=== PATIENT | male | born 1970 | race African-American/Black ===

== ENCOUNTER 2016-09-02 08:44 | Emergency (ER) | payer SELFPAY ==
[~2016-09-02] VITALS: Ht 177.8 cm; Wt 90.7 kg
--- NOTE | 2016-09-02 09:11 | PHYS DOC ---
Past Medical History Past Medical History: Asthma Past Surgical History: Other Additional Past Surgical Histo: L hand fx Alcohol Use: Occasionally Drug Use: Marijuana Adult General Chief Complaint Chief Complaint: SHORTNESS OF BREATH HPI HPI Patient is a 46 year old male who presents with multiple complaints. Patient reports for the past 2 days he has been having productive cough, SOB, chest aching, fever, vomiting. No clear inciting or mitigating factors. Has tried theraflu, herbie seltzer, ibuprofen at home with insufficient relief. Did not measure temperature at home. Did not get a flu shot this year. Review of Systems Review of Systems Constitutional: Fever Eyes: Denies change in visual acuity or eye pain HENT: Denies nasal congestion or sore throat Respiratory: Cough, shortness of breath Cardiovascular: General chest aching GI: Vomiting. Denies abdominal pain, bloody stools or diarrhea : Denies dysuria or hematuria Musculoskeletal: Myalgias Integument: Denies rash or skin lesions Neurologic: Denies headache, focal weakness or sensory changes Current Medications Current Medications Current Medications Medications (Trade) Dose Ordered Sig/Leigh Ann Start Time Stop Time Status Last Admin Dose Admin Acetaminophen (Tylenol) 1,000 mg 1X ONCE 09/02/16 09:30 09/02/16 09:31 DC 09/02/16 09:57 1,000 MG Aspirin (Children'S Aspirin) 324 mg 1X ONCE 09/02/16 09:30 09/02/16 09:31 DC 09/02/16 09:56 324 MG Oseltamivir Phosphate (Tamiflu) 75 mg 1X ONCE 09/02/16 10:00 09/02/16 10:01 DC 09/02/16 09:56 75 MG Sodium Chloride (Iv Sodium Chloride 0.9% 1000ml Bag) 1,000 ml @ 1,000 mls/hr Q1H 09/02/16 09:30 09/02/16 10:29 DC 09/02/16 09:57 1,000 MLS/HR Allergies Allergies Allergies Coded Allergies Type Severity Reaction Last Updated Verified No Known Drug Allergies 05/02/14 No Physical Exam Physical Exam Constitutional: Well developed, well nourished, non-toxic appearance HENT: Normocephalic, atraumatic, bilateral external ears normal Eyes: EOMI, conjunctiva normal, no discharge Neck: Normal range of motion, no stridor Cardiovascular: Tachycardic, regular rhythm, no murmur Lungs & Thorax: Coarse breath sounds throughout Abdomen: Bowel sounds normal, soft, non-distended, no TTP Skin: Hot to touch, dry, no erythema, no rash Extremities: No obvious deformity, no edema Neurologic: Alert and oriented X 3, no gross deficits noted Current Patient Data Vital Signs Vital Signs Date Time Temp Pulse Resp B/P Pulse Ox O2 Delivery O2 Flow Rate FiO2 09/02/16 10:55 94 18 110/65 95 Room Air 09/02/16 08:50 101.6 101.6 Lab Values Laboratory Tests Test 09/02/16 08:54 09/02/16 09:20 09/02/16 10:05 Influenza Type A Antigen Positive (NEGATIVE) Influenza Type B Antigen Negative (NEGATIVE) White Blood Count 5.2x10^3/uL (4.0-11.0) Red Blood Count 4.15x10^6/uL (4.30-5.70) L Hemoglobin 13.1g/dL (13.0-17.5) Hematocrit 38.9% (39.0-53.0) L Mean Corpuscular Volume 94fL (79-100) Mean Corpuscular Hemoglobin 32pg (25-35) Mean Corpuscular Hemoglobin Concent 34g/dL (31-37) Red Cell Distribution Width 13.6% (11.5-14.5) Platelet Count 190x10^3/uL (140-400) Neutrophils (%) (Auto) 71% (31-73) Lymphocytes (%) (Auto) 14% (24-48) L Monocytes (%) (Auto) 14% (0-9) H Eosinophils (%) (Auto) 0% (0-3) Basophils (%) (Auto) 1% (0-3) Neutrophils # (Auto) 3.7x10^3uL (1.8-7.7) Lymphocytes # (Auto) 0.8x10^3/uL (1.0-4.8) L Monocytes # (Auto) 0.7x10^3/uL (0.0-1.1) Eosinophils # (Auto) 0.0x10^3/uL (0.0-0.7) Basophils # (Auto) 0.0x10^3/uL (0.0-0.2) Lactic Acid Level 1.3mmol/L (0.4-2.0) Sodium Level 134mmol/L (136-145) L Potassium Level 3.8mmol/L (3.5-5.1) Chloride Level 97mmol/L (98-107) L Carbon Dioxide Level 27mmol/L (21-32) Anion Gap 10 (6-14) Blood Urea Nitrogen 18mg/dL (8-26) Creatinine 1.6mg/dL (0.7-1.3) H Estimated GFR (Cockcroft-Gault) 56.3 Glucose Level 125mg/dL (70-99) H Calcium Level 8.8mg/dL (8.5-10.1) Troponin I Quantitative < 0.017ng/mL (0.000-0.055) Laboratory Tests 09/02/16 09:20 Laboratory Tests 09/02/16 10:05 EKG EKG EKG (my read): sinus rhythm, rate 108, normal axis, no acute ischemic changes Radiology/Procedures Radiology/Procedures CXR: Impression: No acute radiographic abnormality is seen. Course & Med Decision Making Course & Med Decision Making Pertinent Labs and Imaging studies reviewed. (See chart for details) Patient is 46-year-old male presents with cough, fever, vomiting. Suspect viral illness. Chest x-ray, EKG, labs ordered to evaluate. IV fluids, aspirin, Tylenol ordered for relief of symptoms. Labs largely unremarkable. Creatinine 1.6, however this is relatively close to prior values. Influenza a positive. Dose of Tamiflu ordered. Discussed results with patient. Patient says he is feeling better at this time. Patient discharged home with prescription for cough syrup, Tamiflu, instructions for follow-up and return precautions. Dragon Disclaimer Dragon Disclaimer This electronic medical record was generated, in whole or in part, using a voice recognition dictation system. Departure Departure Impression: Primary Impression: Influenza A Disposition: 01 HOME, SELF-CARE Condition: STABLE Referrals: NO PCP (PCP) Patient Instructions: Influenza A (H1N1) Additional Instructions: Thank you for allowing us to provide care today in the Emergency Department. Take the provided medication as directed. Use caution after taking the cough syrup as it can make you drowsy. Schedule a follow up appointment with your primary care doctor. Return promptly to the Emergency Department if you develop any new or concerning symptoms. Scripts Oseltamivir Phosphate (Tamiflu)75 Mg Capsule1 Cap PO BID #10 CAP Prov:DANNY MENA MD 09/02/16 Hydrocodone/Chlorphen Polis (Tussionex Pennkinetic Susp)480 Ml Yuliet.[id number] Ml PO BID PRN COUGH #100 ML Prov:DANNY MENA MD 09/02/16 DANNY MENA MD Sep 02, 2016 09:11
[2016-09-02] MEDS ORDERED: IV NORMAL SALINE 1000ML BAG 1,000 ML IV SCH (09:30)
[2016-09-02] MEDS ORDERED: ACETAMINOPHEN 500 MG TABLET PO ONE (09:30)
[2016-09-02] MEDS ORDERED: ASPIRIN 81 MG TAB.CHEW PO ONE (09:30)
[2016-09-02 09:34] LABS: BASO % 1 % (0-3); EOS % 0 % (0-3); HEMATOCRIT 38.9 % (39.0-53.0); HEMOGLOBIN 13.1 g/dL (13.0-17.5); LYMPH # 0.8 x10^3/uL (1.0-4.8); LYMPH % 14 % (24-48); MEAN CORPUSCULAR HEMOGLOBIN 32 pg (25-35); MEAN CORPUSCULAR HGB CONC 34 g/dL (31-37); MEAN CORPUSCULAR VOLUME 94 fL (79-100); MONO % 14 % (0-9); NEUT % 71 % (31-73); PLATELET COUNT 190 x10^3/uL (140-400); RED BLOOD COUNT 4.15 x10^6/uL (4.30-5.70); RED CELL DISTRIBUTION WIDTH 13.6 % (11.5-14.5); WHITE BLOOD COUNT 5.2 x10^3/uL (4.0-11.0)
[2016-09-02 09:36] LABS: OBC FLU VALID
--- NOTE | 2016-09-02 09:40 | RAD ---
2 view CXR: Clinical indications: Shortness of breath. Weakness. Abdominal pain. Findings: No acute lung infiltrate or pleural effusion or pulmonary edema or lung mass or pneumothorax is seen. The heart size, pulmonary vasculature, mediastinum and both franklin are unremarkable. The osseous structures appear intact. Impression: No acute radiographic abnormality is seen.
[2016-09-02] MEDS ORDERED: OSELTAMIVIR 75 MG CAPSULE PO ONE (10:00)
--- NOTE | 2016-09-02 10:04 | EKG ---
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
[2016-09-02 10:36] LABS: CALCIUM 8.8 mg/dL (8.5-10.1); CREATININE 1.6 mg/dL (0.7-1.3); GFR 56.3; POTASSIUM 3.8 mmol/L (3.5-5.1)
[2016-09-02 10:55] VITALS: BP 110/65
[2016-09-02] MEDS ORDERED: HYDR115S2 PO (11:30)
[2016-09-02] MEDS ORDERED: OSEL75CA PO (11:30)
== END 2016-09-02 11:40 | disposition home or self-care (01) ==
LOC: ER 08:44
DX: J09.X2 Influenza due to identified novel influenza A virus with other respiratory manifestations (principal); J45.909 Unspecified asthma, uncomplicated; F12.10 Cannabis abuse, uncomplicated
CPT/HCPCS: 36415; 71020; 80048; 83605; 84484; 85027; 87040; 87804; 93005; 96360; 96361; 99285; J7030

== ENCOUNTER 2016-10-26 21:03 | Emergency (ER) | payer SELFPAY ==
[~2016-10-26] VITALS: Ht 177.8 cm; Wt 97.5 kg
[~2016-10-26 21:03] MED LIST: HYDR115S2 PO; OSEL75CA PO
[2016-10-26] MEDS ORDERED: IV NORMAL SALINE 1000ML BAG 1,000 ML IV SCH (22:15)
[2016-10-26] MEDS ORDERED: MORPHINE SULFATE 4 MG/ML DISP.SYRIN. IV ONE (22:15)
[2016-10-26 22:22] VITALS: BP 145/88
[2016-10-26 22:31] LABS: BASO % 1 % (0-3); EOS % 4 % (0-3); HEMATOCRIT 37.5 % (39.0-53.0); HEMOGLOBIN 12.6 g/dL (13.0-17.5); LYMPH # 1.3 x10^3/uL (1.0-4.8); LYMPH % 41 % (24-48); MEAN CORPUSCULAR HEMOGLOBIN 33 pg (25-35); MEAN CORPUSCULAR HGB CONC 34 g/dL (31-37); MEAN CORPUSCULAR VOLUME 96 fL (79-100); MONO % 11 % (0-9); NEUT % 42 % (31-73); PLATELET COUNT 217 x10^3/uL (140-400); RED BLOOD COUNT 3.89 x10^6/uL (4.30-5.70); WHITE BLOOD COUNT 3.1 x10^3/uL (4.0-11.0)
[2016-10-26 22:32] LABS: BILIRUBIN,URINE NEGATIVE (NEG); GLUCOSE,URINE NEGATIVE (NEG); NITRITE,URINE NEGATIVE (NEG); PROTEIN,URINE NEGATIVE (NEG-TRACE)
[2016-10-26 22:38] LABS: BACTERIA,URINE 0 /HPF (0-FEW); SQUAMOUS EPITHELIAL CELL,UR OCC /LPF; WBC,URINE OCC /HPF (0-4)
[2016-10-26 22:41] LABS: CREATININE 1.4 mg/dL (0.7-1.3); GFR 65.7; POTASSIUM 3.8 mmol/L (3.5-5.1)
[2016-10-26 22:46] LABS: ALBUMIN 3.5 g/dL (3.4-5.0); TOTAL BILIRUBIN 0.2 mg/dL (0.2-1.0); TOTAL PROTEIN 6.9 g/dL (6.4-8.2)
--- NOTE | 2016-10-26 23:06 | RAD ---
PROCEDURE CT scan of the abdomen and pelvis without contrast 10/26/2016 HISTORY Severe right flank pain for 1 week. TECHNIQUE Unenhanced contiguous, 2 millimeter axial sections were obtained through the abdomen and pelvis. One or more of the following individualized dose reduction techniques were utilized for this study: 1. Automated exposure control. 2. Adjustment of the mA and/or kV according to patient size. 3. Use of iterative reconstruction technique. FINDINGS The images through the upper abdomen are degraded by patient motion. Images through the lung bases are within normal limits. The liver, spleen, adrenal glands are within normal limits. Punctate calcifications are seen in the region of the head of the pancreas which may reflect chronic pancreatitis. No acute abnormality of the pancreas is seen. No renal or ureteral calculus is seen. There is no evidence of significant obstruction of either collecting system. The abdominal aorta tapers normally. Mild scattered atherosclerotic plaque formation is seen. The gallbladder is contracted. No free fluid or free air is within the abdomen. There is no evidence of bowel obstruction. The appendix is partially visualized and is within normal limits. Images through the pelvis demonstrate the urinary bladder distended with urine. No distal ureteral calculus is seen. Calcifications are seen within the pelvis consistent with phleboliths. Minimal S-shaped curvature of the thoracolumbar spine is noted. IMPRESSION No acute abnormality is seen. Electronically signed by: Eren Murdock MD (Oct 26, 2016 23:05:25)
[2016-10-26] MEDS ORDERED: CYCL10TA2 PO (23:28)
[2016-10-26] MEDS ORDERED: NAPR375T3 PO (23:28)
--- NOTE | 2016-10-26 23:28 | PHYS DOC ---
Past Medical History Past Medical History: Asthma Past Surgical History: Other Additional Past Surgical Histo: hardware left hand Alcohol Use: None Drug Use: None Adult General Chief Complaint Chief Complaint: BACK PAIN - NO INJURY HPI HPI Patient is a 46 year old female who presents with right flank pain. Patient reports for the past 2 weeks she has been having sharp pain in his right flank. This pain is worse with certain movements. He has tried Tylenol with insufficient relief. No urinary symptoms. No abdominal pain. In addition, patient reports that both his hands and wrists have been numb and painful for some time. No clear inciting event for this either. No other acute complaints. Review of Systems Review of Systems Constitutional: Denies fever or chills Respiratory: Denies cough or shortness of breath Cardiovascular: Denies chest pain GI: Denies abdominal pain, nausea, vomiting, bloody stools or diarrhea : Denies dysuria or hematuria Musculoskeletal: R flank pain, b/l hand/wrist pain and numbness Integument: Denies rash or skin lesions Neurologic: Denies headache, focal weakness Current Medications Current Medications Current Medications Medications (Trade) Dose Ordered Sig/Leigh Ann Start Time Stop Time Status Last Admin Dose Admin Ketorolac Tromethamine (Toradol) 30 mg STK-MED ONCE 10/26/16 23:32 10/26/16 23:33 DC Morphine Sulfate 4 mg 1X ONCE 10/26/16 22:15 10/26/16 22:16 DC 10/26/16 22:27 4 MG Sodium Chloride (Iv Sodium Chloride 0.9% 1000ml Bag) 1,000 ml @ 1,000 mls/hr Q1H 10/26/16 22:15 10/26/16 23:14 DC 10/26/16 22:29 1,000 MLS/HR Allergies Allergies Allergies Coded Allergies Type Severity Reaction Last Updated Verified No Known Drug Allergies 05/02/14 No Physical Exam Physical Exam Constitutional: Well developed, well nourished, no acute distress, non-toxic appearance HENT: Normocephalic, atraumatic, bilateral external ears normal Eyes: EOMI, conjunctiva normal, no discharge Neck: Normal range of motion, no stridor Cardiovascular: Heart rate normal, regular rhythm, no murmur Lungs & Thorax: Bilateral breath sounds clear to auscultation Abdomen: Bowel sounds normal, soft, non-distended, no TTP Skin: Warm, dry, no erythema, no rash Back: R lower back TTP, no midline TTP, no stepoff/deformity/skin lesion noted Extremities: B/l hands and wrists visually and palpably unremarkable; no point TTP, no deformity or skin lesion noted; 2+ radial pulse, motor function fully intact Neurologic: Alert and oriented X 3, no gross deficits noted Current Patient Data Vital Signs Vital Signs Date Time Temp Pulse Resp B/P Pulse Ox O2 Delivery O2 Flow Rate FiO2 10/26/16 22:22 85 20 145/88 98 Room Air 10/26/16 21:09 99.5 99.5 Lab Values Laboratory Tests Test 10/26/16 21:15 10/26/16 22:20 Urine Collection Type Unknown Urine Color Yellow Urine Clarity Clear Urine pH 6.0 Urine Specific [place] 1.020 Urine Protein Negativemg/dL (NEG-TRACE) Urine Glucose (UA) Negativemg/dL (NEG) Urine Ketones (Stick) Negativemg/dL (NEG) Urine Blood Small (NEG) Urine Nitrite Negative (NEG) Urine Bilirubin Negative (NEG) Urine Urobilinogen Dipstick 1.0mg/dL (0.2 mg/dL) Urine Leukocyte Esterase Negative (NEG) Urine RBC 3-5/HPF (0-2) Urine WBC Occ/HPF (0-4) Urine Squamous Epithelial Cells Occ/LPF Urine Bacteria 0/HPF (0-FEW) Urine Mucus Slight/LPF White Blood Count 3.1x10^3/uL (4.0-11.0) L Red Blood Count 3.89x10^6/uL (4.30-5.70) L Hemoglobin 12.6g/dL (13.0-17.5) L Hematocrit 37.5% (39.0-53.0) L Mean Corpuscular Volume 96fL (79-100) Mean Corpuscular Hemoglobin 33pg (25-35) Mean Corpuscular Hemoglobin Concent 34g/dL (31-37) Red Cell Distribution Width 14.0% (11.5-14.5) Platelet Count 217x10^3/uL (140-400) Neutrophils (%) (Auto) 42% (31-73) Lymphocytes (%) (Auto) 41% (24-48) Monocytes (%) (Auto) 11% (0-9) H Eosinophils (%) (Auto) 4% (0-3) H Basophils (%) (Auto) 1% (0-3) Neutrophils # (Auto) 1.3x10^3uL (1.8-7.7) L Lymphocytes # (Auto) 1.3x10^3/uL (1.0-4.8) Monocytes # (Auto) 0.3x10^3/uL (0.0-1.1) Eosinophils # (Auto) 0.1x10^3/uL (0.0-0.7) Basophils # (Auto) 0.0x10^3/uL (0.0-0.2) Sodium Level 143mmol/L (136-145) Potassium Level 3.8mmol/L (3.5-5.1) Chloride Level 107mmol/L (98-107) Carbon Dioxide Level 29mmol/L (21-32) Anion Gap 7 (6-14) Blood Urea Nitrogen 19mg/dL (8-26) Creatinine 1.4mg/dL (0.7-1.3) H Estimated GFR (Cockcroft-Gault) 65.7 BUN/Creatinine Ratio 14 (6-20) Glucose Level 126mg/dL (70-99) H Calcium Level 9.0mg/dL (8.5-10.1) Total Bilirubin 0.2mg/dL (0.2-1.0) Aspartate Amino Transferase (AST) 25U/L (15-37) Alanine Aminotransferase (ALT) 33U/L (16-63) Alkaline Phosphatase 71U/L (46-116) Total Protein 6.9g/dL (6.4-8.2) Albumin 3.5g/dL (3.4-5.0) Albumin/Globulin Ratio 1.0 (1.0-1.7) Laboratory Tests 10/26/16 22:20 Laboratory Tests 10/26/16 22:20 EKG EKG [] Radiology/Procedures Radiology/Procedures CT A/P: IMPRESSION No acute abnormality is seen. Course & Med Decision Making Course & Med Decision Making Pertinent Labs and Imaging studies reviewed. (See chart for details) Patient is 46-year-old male who presents with right flank pain. Possible kidney stone versus muscle spasm. Will obtain CT abdomen/pelvis, labs, UA to evaluate. IV fluids, pain medication ordered for patient comfort. Labs largely unremarkable; mild leukopenia, minimal blood in urine but no evidence of UTI. Imaging results as above. Discussed results with patient, who is feeling better at this time. Hand/wrist pain likely due to tendinitis with possible carpal tunnel syndrome component. Will provide with wrist splints. Will discharge with rx for NSAID and muscle relaxant, instructions for follow up, return precautions. Dragon Disclaimer Dragon Disclaimer This electronic medical record was generated, in whole or in part, using a voice recognition dictation system. Departure Departure Impression: Primary Impression: Back pain Additional Impression: Bilateral hand pain Disposition: HOME, SELF-CARE Condition: IMPROVED Referrals: NO PCP (PCP) Patient Instructions: Back Pain, Adult, Tendinitis Additional Instructions: Thank you for allowing us to provide care today in the Emergency Department. Take the provided medication as directed. Use caution when taking the muscle relaxant as it can make you drowsy. Schedule a follow up appointment with a primary care doctor using the provided list. Return promptly to the Emergency Department if you develop any new or concerning symptoms. Scripts Cyclobenzaprine Hcl 10 Mg [id number] Mg PO TID PRN MUSCLE SPASMS #15 TAB Prov:DANNY MENA MD 10/26/16 Naproxen 375 Mg [id number] Mg PO BID PRN PAIN #30 Prov:DANNY MENA MD 10/26/16 Problem Qualifiers DANNY MENA MD Oct 26, 2016 23:28
[2016-10-26] MEDS ORDERED: KETOROLAC 15 MG/ML VIAL. IV ONE (23:30)
[2016-10-26] MEDS ORDERED: KETOROLAC TROMETHAMINE 30 MG/ML INJ. ONE (23:32)
== END 2016-10-26 23:39 | disposition home or self-care (01) ==
LOC: ER 21:03
DX: M79.641 Pain in right hand (principal); M79.642 Pain in left hand; M54.89 Other dorsalgia; R20.0 Anesthesia of skin; R10.9 Unspecified abdominal pain; J45.909 Unspecified asthma, uncomplicated; Z98.890 Other specified postprocedural states
CPT/HCPCS: 36415; 74176; 80053; 81001; 85027; 96361; 96374; 96375; 99285; J1885; J2270; J7030

== ENCOUNTER 2016-11-08 17:48 | Emergency (ER) | payer SELFPAY ==
[~2016-11-08] VITALS: Ht 179.1 cm; Wt 99.8 kg
[~2016-11-08 17:48] MED LIST changes: +CYCL10TA2 PO; +NAPR375T3 PO
[2016-11-08] MEDS ORDERED: ASPIRIN CHEWABLE 81 MG TABLET. PO ONE (18:00)
[2016-11-08 18:14] LABS: BASO % 1 % (0-3); EOS % 1 % (0-3); HEMATOCRIT 41.4 % (39.0-53.0); HEMOGLOBIN 13.8 g/dL (13.0-17.5); LYMPH # 1.4 x10^3/uL (1.0-4.8); LYMPH % 25 % (24-48); MEAN CORPUSCULAR HEMOGLOBIN 32 pg (25-35); MEAN CORPUSCULAR HGB CONC 33 g/dL (31-37); MEAN CORPUSCULAR VOLUME 96 fL (79-100); MONO % 11 % (0-9); NEUT % 63 % (31-73); PLATELET COUNT 243 x10^3/uL (140-400); RED BLOOD COUNT 4.32 x10^6/uL (4.30-5.70); RED CELL DISTRIBUTION WIDTH 13.9 % (11.5-14.5); WHITE BLOOD COUNT 5.7 x10^3/uL (4.0-11.0)
[2016-11-08 18:34] LABS: CALCIUM 10.2 mg/dL (8.5-10.1); CREATININE 1.5 mg/dL (0.7-1.3); GFR 60.7; POTASSIUM 3.9 mmol/L (3.5-5.1)
--- NOTE | 2016-11-08 18:35 | EKG ---
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
[2016-11-08 18:40] LABS: ALBUMIN 4.5 g/dL (3.4-5.0); DIRECT BILIRUBIN 0.2 mg/dL (0.0-0.2); TOTAL BILIRUBIN 0.7 mg/dL (0.2-1.0); TOTAL PROTEIN 8.3 g/dL (6.4-8.2)
[2016-11-08] MEDS ORDERED: FAMO40TA57 PO (19:17)
--- NOTE | 2016-11-08 19:18 | PHYS DOC ---
Past Medical History Past Medical History: Asthma Past Surgical History: Other Additional Past Surgical Histo: hardware left hand Alcohol Use: Occasionally Drug Use: Marijuana Adult General Chief Complaint Chief Complaint: CHEST PAIN HPI HPI 46-year-old male presenting to the emergency department today with chest pain that he describes as sharp pain which is moderate nonradiating and without alleviating factors. He has also had a little bit of epigastric burning sensation and has noticed small amounts of red blood after vomiting once today. He has a history of asthma but denies a history of hyperlipidemia hypertension diabetes. He does have a history of smoking. He denies unilateral leg swelling hemoptysis recent immobilization or personal or family history of blood clotting disorders. Review of systems is negative for fevers chills syncope headache. All other review of systems is negative unless otherwise noted in history of present illness. Review of Systems Review of Systems SEE ABOVE. Current Medications Current Medications Current Medications Medications (Trade) Dose Ordered Sig/Leigh Ann Start Time Stop Time Status Last Admin Dose Admin Aspirin (Children'S Aspirin) 324 mg 1X ONCE 11/08/16 18:00 11/08/16 18:01 DC 11/08/16 18:23 324 MG Allergies Allergies Allergies Coded Allergies Type Severity Reaction Last Updated Verified No Known Drug Allergies 11/08/16 No Physical Exam Physical Exam Constitutional: Well developed, well nourished, no acute distress, non-toxic appearance. HENT: Normocephalic, atraumatic, bilateral external ears normal, oropharynx moist, no oral exudates, nose normal. [] Eyes: PERRLA, EOMI, conjunctiva normal, no discharge. Neck: Normal range of motion, no tenderness, supple, no stridor. Cardiovascular:Heart rate regular rhythm, no murmur [] Lungs & Thorax: Bilateral breath sounds clear to auscultation [] Abdomen: Soft nontender abdomen without rebound tenderness or guarding present. Negative McBurneys point. Negative Ceballos sign. No ecchymosis present. Skin: Warm, dry, no erythema, no rash. Back: No tenderness, no CVA tenderness. [] Extremities: No tenderness, no cyanosis, no clubbing, ROM intact, no edema. [] Neurologic: Alert and oriented X 3, normal motor function, normal sensory function, no focal deficits noted. [] Psychologic: Affect normal, judgement normal, mood normal. [] Current Patient Data Vital Signs Vital Signs Date Time Temp Pulse Resp B/P Pulse Ox O2 Delivery O2 Flow Rate FiO2 11/08/16 17:58 98.4 94 20 137/87 98 Room Air 98.4 Lab Values Laboratory Tests Test 11/08/16 18:05 White Blood Count 5.7x10^3/uL (4.0-11.0) Red Blood Count 4.32x10^6/uL (4.30-5.70) Hemoglobin 13.8g/dL (13.0-17.5) Hematocrit 41.4% (39.0-53.0) Mean Corpuscular Volume 96fL (79-100) Mean Corpuscular Hemoglobin 32pg (25-35) Mean Corpuscular Hemoglobin Concent 33g/dL (31-37) Red Cell Distribution Width 13.9% (11.5-14.5) Platelet Count 243x10^3/uL (140-400) Neutrophils (%) (Auto) 63% (31-73) Lymphocytes (%) (Auto) 25% (24-48) Monocytes (%) (Auto) 11% (0-9) H Eosinophils (%) (Auto) 1% (0-3) Basophils (%) (Auto) 1% (0-3) Neutrophils # (Auto) 3.6x10^3uL (1.8-7.7) Lymphocytes # (Auto) 1.4x10^3/uL (1.0-4.8) Monocytes # (Auto) 0.6x10^3/uL (0.0-1.1) Eosinophils # (Auto) 0.0x10^3/uL (0.0-0.7) Basophils # (Auto) 0.0x10^3/uL (0.0-0.2) Sodium Level 140mmol/L (136-145) Potassium Level 3.9mmol/L (3.5-5.1) Chloride Level 101mmol/L (98-107) Carbon Dioxide Level 28mmol/L (21-32) Anion Gap 11 (6-14) Blood Urea Nitrogen 15mg/dL (8-26) Creatinine 1.5mg/dL (0.7-1.3) H Estimated GFR (Cockcroft-Gault) 60.7 Glucose Level 96mg/dL (70-99) Calcium Level 10.2mg/dL (8.5-10.1) H Total Bilirubin 0.7mg/dL (0.2-1.0) Direct Bilirubin 0.2mg/dL (0.0-0.2) Aspartate Amino Transferase (AST) 40U/L (15-37) H Alanine Aminotransferase (ALT) 45U/L (16-63) Alkaline Phosphatase 64U/L (46-116) Troponin I Quantitative < 0.017ng/mL (0.000-0.055) SV-Udd-S-Type Natriuretic Peptide 19pg/mL (0-124) Total Protein 8.3g/dL (6.4-8.2) H Albumin 4.5g/dL (3.4-5.0) Lipase 71U/L (73-393) L Laboratory Tests 11/08/16 18:05 Laboratory Tests 11/08/16 18:05 EKG EKG EKG shows sinus rhythm with a regular rate. Left axis deviation present. ST segments are congruent. Not suggestive of ischemia. [] Radiology/Procedures Radiology/Procedures []Chest x-ray reviewed by myself shows no obvious infiltrate or pneumothorax present. No obvious acute cardiopulmonary process present. Course & Med Decision Making Course & Med Decision Making Pertinent Labs and Imaging studies reviewed. (See chart for details) [] 46-year-old male presenting to the emergency department today with chest pain. Afebrile with normal vital signs. Pertinent physical exam findings showed nontender abdomen. He did describe symptoms suggestive of a gastritis epigastric abdominal pain that is burning in nature. I prescribed the patient an antacid to go home with. Troponin negative EKG not suggestive of ischemia. Chest x-ray unremarkable. I felt the 1 troponin was sufficient based on the patient's symptomatology been present for a proximally 10 hours. Heart score of 2. Dragon Disclaimer Dragon Disclaimer This electronic medical record was generated, in whole or in part, using a voice recognition dictation system. Departure Departure Impression: Primary Impression: Chest pain Disposition: HOME, SELF-CARE Condition: STABLE Referrals: NO PCP (PCP) FABRICE IRBY MD Patient Instructions: Chest Pain (Nonspecific) Additional Instructions: Thank you for allowing us to participate in your care today. Followup with your primary care physician in 3 days if your symptoms do not improve. If you do not have a primary care provider you can ask for a list of our primary care providers. Return to the emergency department you have any new or concerning findings. This should be evaluated by the primary care physician and any necessary consulting services for continued management within a few days after discharge. Return to emergency room if you have any new or concerning symptoms including but not limited to fever, chills, nausea, vomiting, intractable pain, any new rashes, chest pain, shortness of air, uncontrolled bleeding, difficulty breathing, and/or vision loss. You may have been prescribed medication that can change in your level of thinking and ability to operate machinery. These medications include hydrocodone and Ativan. Also, Benadryl has been known to do this as well. Be sure to check with your pharmacist and ask if the medications you've prescribed can affect your level of consciousness. I recommend not operating heavy machinery or driving while on medication such as these. Scripts Famotidine (Pepcid)40 Mg [id number] Mg PO HS #14 TAB Prov:PIOTR GEORGE MD 11/08/16 Problem Qualifiers Primary Impression: Chest pain Chest pain type: unspecified Qualified Code: R07.9 - Chest pain, unspecified PIOTR GEORGE MD Nov 08, 2016 19:18
[2016-11-08] MEDS ORDERED: ONDA4TAB10 SL (19:19)
[2016-11-08 19:28] VITALS: BP 147/88
--- NOTE | 2016-11-09 08:45 | RAD ---
Portable chest, 11/08/2016: History: Epigastric pain The heart size and pulmonary vascularity are normal. No pulmonary infiltrates are seen. There is no evidence of pleural fluid. IMPRESSION: No acute cardiopulmonary abnormality is detected.
== END 2016-11-08 19:42 | disposition home or self-care (01) ==
LOC: ER 17:48
DX: R07.9 Chest pain, unspecified (principal); R10.13 Epigastric pain; R11.10 Vomiting, unspecified; J45.909 Unspecified asthma, uncomplicated; F17.200 Nicotine dependence, unspecified, uncomplicated; F12.10 Cannabis abuse, uncomplicated
CPT/HCPCS: 36415; 71010; 80048; 80076; 83690; 83880; 84484; 85027; 93005; 99285-25

== ENCOUNTER 2017-02-20 18:17 | Emergency (ER) | payer OTHER ==
[~2017-02-20] VITALS: Ht 177.8 cm; Wt 97.5 kg
[~2017-02-20 18:17] MED LIST changes: +FAMO40TA57 PO; +ONDA4TAB10 SL
[2017-02-20 18:27] VITALS: BP 136/84
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
[2017-02-20] MEDS ORDERED: NAPR500T PO (19:27)
[2017-02-20] MEDS ORDERED: HYDR-2758 PO (19:30)
[2017-02-20] MEDS ORDERED: CYCL10TA2 PO (19:30)
--- NOTE | 2017-02-21 08:04 | RAD ---
Right shoulder, 3 views, 02/20/2017: History: Shoulder pain, injury No fracture or dislocation is identified. There is mild degenerative change at the AC joint. IMPRESSION: No acute bony abnormality is detected.
== END 2017-02-20 19:52 | disposition home or self-care (01) ==
LOC: ER 18:17
DX: S49.91XA Unspecified injury of right shoulder and upper arm, initial encounter (principal); J45.909 Unspecified asthma, uncomplicated; F12.10 Cannabis abuse, uncomplicated; V29.88XA Motorcycle rider (driver) (passenger) injured in other specified transport accidents, initial encounter; Y93.89 Activity, other specified; Y99.8 Other external cause status; Y92.410 Unspecified street and highway as the place of occurrence of the external cause
CPT/HCPCS: 73030; 99284

== ENCOUNTER 2017-03-21 18:41 | Emergency (ER) | payer OTHER ==
[~2017-03-21] VITALS: Ht 177.8 cm; Wt 96.2 kg
[~2017-03-21 18:41] MED LIST changes: +HYDR-2758 PO; +NAPR500T PO
[2017-03-21 19:08] VITALS: BP 127/60
[2017-03-21] MEDS ORDERED: CYCL10TA2 PO (19:15)
[2017-03-21] MEDS ORDERED: NAPR500T PO (19:15)
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
== END 2017-03-21 19:27 | disposition home or self-care (01) ==
LOC: ER 18:41
DX: S49.91XA Unspecified injury of right shoulder and upper arm, initial encounter (principal); J45.909 Unspecified asthma, uncomplicated; X58.XXXA Exposure to other specified factors, initial encounter; Y93.89 Activity, other specified; Y92.89 Other specified places as the place of occurrence of the external cause; Y99.8 Other external cause status
CPT/HCPCS: 99283

== ENCOUNTER 2017-04-03 16:19 | Emergency (ER) | payer OTHER ==
[~2017-04-03] VITALS: Ht 177.8 cm; Wt 96.2 kg
[~2017-04-03 16:19] MED LIST changes: +NAPR-695 PO; -NAPR375T3 PO
[2017-04-03] MEDS ORDERED: DICL50TA2 PO (16:42)
[2017-04-03] MEDS ORDERED: CYCL10TA2 PO (16:42)
[2017-04-03] MEDS ORDERED: METH4TAB2 PO (16:42)
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
== END 2017-04-03 16:53 | disposition home or self-care (01) ==
LOC: ER 16:19
DX: G89.29 Other chronic pain (principal); M25.511 Pain in right shoulder; J45.909 Unspecified asthma, uncomplicated; V49.60XA Unspecified car occupant injured in collision with unspecified motor vehicles in traffic accident, initial encounter; Y93.89 Activity, other specified; Y92.410 Unspecified street and highway as the place of occurrence of the external cause; Y99.8 Other external cause status
CPT/HCPCS: 99283